=== PATIENT | female | born 2000 | race Two or more races ===

== ENCOUNTER 2022-10-15 13:56 | Emergency (ER) | payer OTHER ==
[~2022-10-15] VITALS: Ht 152.4 cm; Wt 52.6 kg
== END 2022-10-15 16:17 | disposition home or self-care (01) ==
LOC: EMR PED 13:56
DX: M54.50 Low back pain, unspecified (principal); V43.52XA Car driver injured in collision with other type car in traffic accident, initial encounter; Y93.9 Activity, unspecified; Y92.410 Unspecified street and highway as the place of occurrence of the external cause

== ENCOUNTER 2025-02-06 19:10 | Emergency (ER) | payer OTHER ==
[~2025-02-06] VITALS: Ht 152.4 cm; Wt 53.5 kg
[2025-02-06] MEDS ORDERED: CETIRIZINE HCL 5 MG/5 ML ML PO ONE (22:00)
[2025-02-06] MEDS ORDERED: CETIRIZINE HCL 5MG/5ML BLIST.PACK PO ONE (23:13)
[2025-02-06 23:28] LABS: BASO % 0.9 % (0.1-1.2); EOS # 0.23 (0.04-0.54); EOS % 3.9 % (0.7-7.0); HEMOGLOBIN 14.2 g/dL (11.2-15.7); LYMPH # 1.49 (1.18-3.74); LYMPH % 25.5 % (19.3-53.1); MEAN CORPUSCULAR HEMOGLOBIN 30.9 pg (25.6-32.2); MONO # 0.51 (0.24-0.82); MONO % 8.7 % (4.7-12.5); NEUT # 3.55 (1.56-6.13); NEUT % 60.8 % (34.0-71.1); PLATELET COUNT 237 K/uL (163-369); RED BLOOD COUNT 4.59 M/uL (3.93-5.22)
[2025-02-06 23:46] LABS: ALBUMIN 3.8 gm/dL (3.4-5.0); BILIRUBIN TOTAL 0.43 mg/dL (0.3-1.2); CALCIUM 8.9 mg/dL (8.5-10.1); CREATININE SERUM 0.75 mg/dL (0.55-1.02); GFR 96.63; GLOBULINA 3.9 G/DL (2.4-3.5); POTASSIUM 4.01 mEq/L (3.5-5.1); TOTAL PROTEIN 7.7 gm/dL (6.4-8.2)
[2025-02-07] MEDS ORDERED: AZITHROMYCIN500 MG PO (00:04)
[2025-02-07] MEDS ORDERED: PEPCID AC20 MG PO (00:04)
[2025-02-07 00:58] LABS: COVID-19 AG NEGATIVE (NEGATIVE)
[2025-02-07 01:40] LABS: INFLUENZA A AG NEGATIVE (NEGATIVE)
== END 2025-02-07 00:33 | disposition home or self-care (01) ==
LOC: ER 19:43
PROVIDERS: General Practice
DX: R51.9 Headache, unspecified (principal); R50.9 Fever, unspecified; Z20.822 Contact with and (suspected) exposure to COVID-19; Z88.1 Allergy status to other antibiotic agents